=== PATIENT | male | born 1965 | race Caucasian/White ===

== ENCOUNTER → 2020-09-21 | Outpatient (CLI) | payer BC ==
[2020-09-21 09:52] LABS: HEMOGLOBIN 14.6 gm/dl (14.0-17.5); RED BLOOD COUNT 4.93 M/UL (4.20-5.50); WHITE BLOOD COUNT 5.1 K/UL (4.5-11.0)
[2020-09-21 10:18] LABS: BUN/CREATININE RATIO 11 (0-10)
== END ==
LOC: LAB 09:30
PROVIDERS: Nurse Practitioner Family
DX: E78.5 Hyperlipidemia, unspecified (principal); I10 Essential (primary) hypertension; E55.9 Vitamin D deficiency, unspecified
CPT/HCPCS: 36415; 80053; 80061; 82607; 82652; 84439; 84443; 85025

== ENCOUNTER → 2021-03-29 | Outpatient (CLI) | payer BC ==
[2021-03-29 10:34] LABS: HEMOGLOBIN 16.5 gm/dl (14.0-17.5); RED BLOOD COUNT 5.29 M/UL (4.20-5.50); WHITE BLOOD COUNT 5.8 K/UL (4.5-11.0)
[2021-03-29 11:32] LABS: BUN/CREATININE RATIO 12 (0-10)
[2021-03-30 07:08] LABS: VITAMIN D, 25-HYDROXY 28.1 ng/mL (30.0-100.0)
[2021-03-30 08:09] LABS: % FREE PSA 45.6 % (.); PROSTATE SPECIFIC AG, SERUM 1.8 ng/mL (0.0-4.0); PSA, FREE 0.82 ng/mL
== END ==
LOC: LAB 09:34
PROVIDERS: Nurse Practitioner Family
DX: N40.0 Benign prostatic hyperplasia without lower urinary tract symptoms (principal); N52.9 Male erectile dysfunction, unspecified; E78.5 Hyperlipidemia, unspecified; I10 Essential (primary) hypertension; E55.9 Vitamin D deficiency, unspecified
CPT/HCPCS: 80053; 80061; 82607; 84153; 84154; 84439; 84443; 85025

== ENCOUNTER → 2021-10-13 | Outpatient (CLI) | payer BC | LOC: US 15:00 | DX: N63.0 Unspecified lump in unspecified breast (principal) | CPT/HCPCS: 76642-LT ==

== ENCOUNTER → 2021-10-26 | Outpatient (CLI) | payer BC ==
[2021-10-26 10:16] LABS: HEMOGLOBIN 14.8 gm/dl (14.0-17.5); RED BLOOD COUNT 4.8 M/UL (4.20-5.50); WHITE BLOOD COUNT 6.7 K/UL (4.5-11.0)
[2021-10-26 10:46] LABS: BUN/CREATININE RATIO 12 (0-10)
== END ==
LOC: LAB 09:45
PROVIDERS: Nurse Practitioner Family
DX: N40.0 Benign prostatic hyperplasia without lower urinary tract symptoms (principal); N52.9 Male erectile dysfunction, unspecified; E78.5 Hyperlipidemia, unspecified; I10 Essential (primary) hypertension; E55.9 Vitamin D deficiency, unspecified
CPT/HCPCS: 36415; 80053; 80061; 82607; 84153; 84439; 84443; 85025